=== PATIENT | male | born 1970 | race Caucasian/White ===

== ENCOUNTER 2022-07-19 15:41 | Emergency (ER) | payer OTHER, BC ==
[2022-07-19] MEDS ORDERED: Iopamidol 612 MG/ML 100 ML Bottle IVPUSH STA (15:48)
[2022-07-19] MEDS: Ondansetron 4 MG/2 ML SDV IVPUSH ONE (15:54)
[2022-07-19] MEDS: Sodium Chloride 0.9% 1,000 ML IV ONE (15:55)
[2022-07-19 16:16] LABS: ANION GAP 11.9 meq/L (7-15); CHLORIDE,CL 101 mmol/L (98-107); SODIUM,NA 136 mmol/L (136-145)
[2022-07-19] MEDS ORDERED: Bacitracin/Neomycin/Polymyxin B Oint 0.9 GM U/D Packet ONE (16:20)
[2022-07-19 16:27] LABS: ESTIMATED GFR 98 mL/min (>=60)
== END 2022-07-19 17:05 ==
LOC: LL.ED 15:41
DX: S09.90XA Unspecified injury of head, initial encounter (principal); E83.42 Hypomagnesemia; I10 Essential (primary) hypertension; Z79.899 Other long term (current) drug therapy; V89.2XXA Person injured in unspecified motor-vehicle accident, traffic, initial encounter; Y92.410 Unspecified street and highway as the place of occurrence of the external cause
CPT/HCPCS: 36415; 70450; 71260; 72125; 73090; 73120; 73551; 74177; 80053; 80307; 83605; 83735; 85025; 96361; 96374; 99284; J2405; J7030

== ENCOUNTER 2023-08-05 14:31 | Emergency (ER) | payer BC ==
[2023-08-05] MEDS ORDERED: Acetaminophen 325 MG Tab PO ONE (15:26)
[2023-08-05 15:38] LABS: BASOPHILS ABSOLUTE AUTO 0.03 K/uL (0.00-0.20); BASOPHILS PERCENT AUTO 0.5 % (0.0-2.0); EOSINOPHILS ABSOLUTE AUTO 0.12 K/uL (0.00-0.50); EOSINOPHILS PERCENT AUTO 2.1 % (0.0-5.0); HEMATOCRIT 38.5 % (39.0-49.0); HEMOGLOBIN 13.4 g/dL (13.1-16.8); LYMPHOCYTES PERCENT AUTO 24.5 % (10.0-50.0); MEAN CORPUSCULAR HEMOGLOBIN 32.2 pg (28.2-33.3); MEAN CORPUSCULAR HGB CONC 34.8 g/dL (31.7-36.0); MEAN CORPUSCULAR VOLUME 92.5 fL (84.0-98.0); MONOCYTES ABSOLUTE AUTO 0.73 K/uL (0.00-1.00); MONOCYTES PERCENT AUTO 12.8 % (2.0-14.0); NEUTROPHILS ABSOLUTE AUTO 3.44 K/uL (1.40-7.00); NEUTROPHILS PERCENT AUTO 60.1 % (45.0-80.0); PLATELET COUNT,PLT 165 K/uL (150-350); RED BLOOD CELL COUNT 4.16 M/uL (4.33-5.41); RED CELL DISTRIBUTION WIDTH 12.3 % (11.2-14.1); WHITE BLOOD CELL COUNT,WBC 5.7 K/uL (4.0-10.2)
[2023-08-05 15:59] LABS: ALBUMIN 3.8 g/dL (3.4-5.0); ANION GAP 7.8 meq/L (7-15); BILIRUBIN TOTAL 0.8 mg/dL (0.2-1.0); CALCIUM 9.3 mg/dL (8.5-10.1); CARBON DIOXIDE,CO2 29.2 mmol/L (21.0-32.0); CREATININE 1.06 mg/dL (0.51-1.17); EST CRCL DRUG DOSING (CG) 83.22 mL/min; POTASSIUM,K 4.5 mmol/L (3.5-5.1); PROTEIN TOTAL,TP 6.8 g/dL (6.4-8.2)
[2023-08-05] MEDS ORDERED: Ketorolac 30 MG/ML SDV IM ONE (16:04)
[2023-08-05 16:05] LABS: PROTHROMBIN TIME 9.6 SEC (9.0-11.1)
[2023-08-05 16:18] VITALS: PULSE 67
[2023-08-05 18:16] VITALS: BP 132/91
[2023-08-05] MEDS ORDERED: Take Home: Acetaminophen/HYDROcodone 325-5 MG, 5 Tab Pack PO ONE (18:45)
[2023-08-05] MEDS ORDERED: Take Home: Acetaminophen/HYDROcodone 325-5 MG, 5 Tab Pack ONE (18:58)
== END 2023-08-05 19:00 | disposition home or self-care (01) ==
LOC: LL.ED 14:31
DX: S22.42XA Multiple fractures of ribs, left side, initial encounter for closed fracture (principal); S32.029K Unspecified fracture of second lumbar vertebra, subsequent encounter for fracture with nonunion; I10 Essential (primary) hypertension; Z79.899 Other long term (current) drug therapy; W18.2XXA Fall in (into) shower or empty bathtub, initial encounter; Z91.81 History of falling; Y93.01 Activity, walking, marching and hiking
CPT/HCPCS: 36415; 71250; 72131; 80053; 85025; 85610; 96372; 99284; A9270-GY; J1885